=== PATIENT | male | born 1985 | race Caucasian/White ===

== ENCOUNTER 2018-05-14 15:35 | Emergency (ER) | payer SELFPAY ==
[~2018-05-14 15:35] MED LIST: Lidocaine 1% w/Epinephrine 1:100K 30 ML VIAL ONE
[2018-05-14] MEDS ORDERED: Adacel (T-DAP) 0.5 ML VIAL ONE (16:06)
[2018-05-14] MEDS ORDERED: Bacitracin Zinc 1 Packet ONE (16:06)
== END 2018-05-14 16:23 | disposition home or self-care (01) ==
LOC: MADERS 15:35
DX: S61.412A Laceration without foreign body of left hand, initial encounter (principal); W26.0XXA Contact with knife, initial encounter
CPT/HCPCS: 12001; 90471; 90715; J2001

== ENCOUNTER 2018-05-21 08:49 | Emergency (ER) | payer OTHER, SELFPAY | END 2018-05-21 09:56 | disposition home or self-care (01) | LOC: MADERS 08:49 | DX: L03.114 Cellulitis of left upper limb (principal); S61.412D Laceration without foreign body of left hand, subsequent encounter | CPT/HCPCS: 99283 ==